=== PATIENT | female | born 1990 | race Hispanic/Latino ===

== ENCOUNTER 2021-01-02 20:46 | Inpatient (IN) | payer MEDICAID, OTHER, SELFPAY ==
[2021-01-02] MEDS ORDERED: Ibuprofen 800 MG TAB PO PRN (21:04)
[2021-01-02] MEDS ORDERED: Methylergonovine 0.2 MG/ML VIAL IM PRN (21:04)
[2021-01-02] MEDS ORDERED: HYDROcodone/Acetaminophen 5/325 mg Tablet PO PRN (21:04)
[2021-01-02] MEDS ORDERED: Ondansetron PF 4 MG/2 ML Vial IVP PRN (21:04)
[2021-01-02] MEDS ORDERED: hydrALAZINE 20 MG/ML VIAL SLOW IVP PRN (21:04)
[2021-01-02] MEDS ORDERED: Carboprost 250 MCG/ML AMP IM PRN (21:04)
[2021-01-02] MEDS ORDERED: Butorphanol Tartrate 1 MG/ML VIAL SLOW IVP PRN (21:04)
[2021-01-02] MEDS ORDERED: Lidocaine 1% (PF) 30 ML VIAL SC PRN (21:04)
[2021-01-02] MEDS ORDERED: Diphenoxylate HCl/Atropine Tablet PO PRN (21:04)
[2021-01-02] MEDS ORDERED: Promethazine HCl 25 MG/ML VIAL IM PRN (21:04)
[2021-01-02] MEDS ORDERED: Misoprostol 200 MCG TAB PR PRN (21:04)
[2021-01-02] MEDS ORDERED: Acetaminophen 500 MG TAB PO PRN (21:04)
[2021-01-02] MEDS ORDERED: NS w/ Oxytocin 30 units 500 ML IVPB SCH (21:15)
[2021-01-02] MEDS ORDERED: NS w/ Oxytocin 30 units 500 ML IV SCH ×2 (21:15)
[2021-01-02] MEDS: Lactated Ringer's 1,000 ML IV SCH (21:50)
[2021-01-02 22:01] VITALS: BMI 29.3
[2021-01-02] MEDS ORDERED: Misoprostol 100 MCG TAB ONE (22:10)
[2021-01-02] MEDS ORDERED: Penicillin G Potassium 5 MILL.UNITS in Sodium Chloride 0.9% 100 ML IVPB SCH (22:15)
[2021-01-02] MEDS: Misoprostol 100 MCG TAB PO SCH (22:16)
[2021-01-02 22:23] LABS: Hemoglobin 10.3 g/dL (12.0-15.5); Mean Corpuscular HGB CONC 33.7 g/dL (32.0-36.0); Mean Corpuscular Hemoglobin 29.2 pg (27.0-33.0); Mean Corpuscular Volume 86.7 fl (81.6-98.3); Mean Platelet Volume 10.4 fl (7.4-10.4); Platelet Count 216 10x3/uL (150-450); RBC Distribution Width 12.7 % (11.5-14.5); Red Blood Cell (RBC) Count 3.53 10x6/uL (3.90-5.03)
[2021-01-02 23:09] LABS: Hep B Surf Ag Non-Reactive S/CO (NonReactive); Syphilis Antibody Nonreactive (Nonreactive); Syphilis Antibody Index 0.04 S/CO (<1.00 Non-Reactive)
[2021-01-03] MEDS: Lactated Ringer's 1,000 ML IV SCH ×2 (01:49→10:01)
[2021-01-03] MEDS ORDERED: Penicillin G 2.5 MILL.units 2.5 MILL.UNITS in Premix Bag 1 BAG IVPB SCH (02:00)
[2021-01-03] MEDS: Misoprostol 100 MCG TAB PO SCH ×3 (02:37→06:59)
[2021-01-03] MEDS ORDERED: Ondansetron PF 4 MG/2 ML Vial IVP PRN (15:11)
[2021-01-03] MEDS ORDERED: Bisacodyl 10 MG SUPP PR PRN (15:11)
[2021-01-03] MEDS ORDERED: Lanolin Ointment 7 GM TUBE TOP PRN (15:11)
[2021-01-03] MEDS ORDERED: diphenhydrAMINE 25 MG CAP PO PRN (15:11)
[2021-01-03] MEDS ORDERED: HYDROcodone/Acetaminophen 5/325 mg Tablet PO PRN ×2 (15:11)
[2021-01-03] MEDS ORDERED: Boostrix 0.5 ML (Tdap) VIAL IM ONE (15:11)
[2021-01-03] MEDS ORDERED: Benzocaine-Menthol 82.5 ML CAN TOP PRN (15:11)
[2021-01-03] MEDS ORDERED: Milk Of Magnesia 30 ML UDCUP PO PRN (15:11)
[2021-01-03] MEDS ORDERED: hydrALAZINE 20 MG/ML VIAL SLOW IVP PRN (15:11)
[2021-01-03] MEDS ORDERED: Ibuprofen 800 MG TAB PO SCH (15:30)
[2021-01-03] MEDS: Ferrous Sulfate 325 MG TAB PO SCH (17:34)
[2021-01-03] MEDS: Docusate Calcium (SURFAK) 240 MG CAP PO SCH (21:32)
[2021-01-03] MEDS: Ibuprofen 800 MG TAB PO SCH (21:32)
[2021-01-04] MEDS: Ibuprofen 800 MG TAB PO SCH ×2 (05:30→13:39)
[2021-01-04 08:05] VITALS: TEMP 98.5
[2021-01-04] MEDS: Ferrous Sulfate 325 MG TAB PO SCH ×2 (08:31→16:38)
[2021-01-04] MEDS: Docusate Calcium (SURFAK) 240 MG CAP PO SCH (08:34)
[2021-01-04] MEDS ORDERED: Prenatal Vitamin 1 TAB PO SCH (09:00)
[2021-01-04 11:45] VITALS: BP 100/55
== END 2021-01-04 18:45 | disposition home or self-care (01) | DRG 807 ==
LOC: CSHLD 20:46 → CSHPP 01-03 15:45
PROVIDERS: ADMIT Family Medicine; ATTEND Family Medicine
PROC: 10E0XZZ Delivery of Products of Conception, External Approach (ICD-10-PCS; principal; 2021-01-03)
DX: O80 Encounter for full-term uncomplicated delivery (principal); Z37.0 Single live birth; Z20.822 Contact with and (suspected) exposure to COVID-19; Z3A.40 40 weeks gestation of pregnancy
CPT/HCPCS: 36415; 85027; 86780; 86850; 86900; 86901; 87340; J0595; J2590; J7120